=== PATIENT | male | born 1990 | race Caucasian/White ===

== ENCOUNTER 2017-02-21 18:59 | Emergency (ER) | payer BC, OTHER ==
[~2017-02-21] VITALS: Ht 182.9 cm; Wt 97.1 kg
[~2017-02-21 18:59] MED LIST: CLR10 PO; RISP1TAB68 PO; RISP2TAB22 PO; TRIA3AER NAE
[2017-02-21 19:03] VITALS: TEMP 36.4; Ht 182.9 cm; Wt 97.1 kg
[2017-02-21] MEDS ORDERED: TRIA1SPR4 NAE (19:39)
[2017-02-21] MEDS ORDERED: SERT50TA PO (19:41)
--- NOTE | 2017-02-21 20:32 | EMERGENCY ROOM VISIT NOTE ---
History Report prepared by Enrique: Martina Stokes Under the Supervision of: Dr. Mann Barrios M.D. First contact with patient: 19:48 Chief Complaint: RESPIRATORY PROBLEMS Stated Complaint: DIZZINESS, LIGHT HEADED, DIFFICULTY BREATHING Nursing Triage Summary: Patient states, "I'm having difficulty breathing. It doesn't hurt. I'm just yawning a lot and can't breath." Denies cough. Denies recent illness. History of Present Illness The patient is a 26 year old male who presents to the Emergency Room with complaints of worsening respiratory problems for the past couple of days. The patient states that he has been yawning constantly and feels like he is unable to take a deep breath. He is also experiencing intermittent dizziness and lightheadedness. He reports that these symptoms began after he started wearing a new 18K gold ring. He is concerned that he may be having some sort of reaction to the ring. He denies nausea, vomiting, diarrhea, chest pain, and cough. The patient denies any numbness or weakness in his extremities. He has a history of asthma but states that this does not feel like his typical asthma. He has never followed-up with a air filler. He does not take anything blood thinners. Source of History: patient Onset: a couple of days ago Position: chest (respiratory) Symptom Intensity: mild Timing: worsening Modifying Factors (Worsening): other (gold ring - possible allergic rxn) Associated Symptoms: No cough, No chest pain, No nausea, No vomiting, No diarrhea, No weakness, No numbness Note: Pt notes yawning and inability to take a deep breath. Review of Systems See HPI for pertinent positives & negatives. A total of 10 systems reviewed and were otherwise negative. Past Medical & Surgical Medical Problems: (1) Asthma Family History Cancer Diabetes mellitus Heart disease Seizures Social History Smoking Status: Never Smoker Smokeless Tobacco Use: No Alcohol Use: none Housing Status: lives with family Occupation Status: unemployed Current/Historical Medications Scheduled Loratadine (Claritin), 10 MG PO DAILY Risperidone (Risperdal), 1 MG PO QAM Risperidone (Risperdal), 2 MG PO HS Sertraline (Zoloft), 1.5 TAB PO DAILY Scheduled PRN Triamcinolone Acetonide (Nasal (Nasacort Allergy 24Hr), 1 SPRAY MURTAZA DAILY PRN for Nasal Congestion Allergies Coded Allergies: Penicillins (Unverified Allergy, Severe, HIVES, 10/09/09) Physical Exam Vital Signs Date Time Temp Pulse Resp B/P (MAP) Pulse Ox O2 Delivery O2 Flow Rate FiO2 02/21/17 22:21 63 19 120/72 95 Room Air 02/21/17 21:29 62 02/21/17 21:14 95 Room Air 02/21/17 21:14 95 Room Air 02/21/17 20:50 62 16 126/81 95 Room Air 02/21/17 19:03 36.4 68 18 136/80 96 Room Air 02/21/17 19:03 96 Room Air Physical Exam GENERAL: Patient is a healthy-appearing well-nourished young male. HEAD: Normocephalic atraumatic EYES: Ocular movements intact pupils equal and react to light OROPHARYNX mucous membranes are moist no exudates present no erythema or edema present NECK: Supple no nuchal rigidity CHEST: Good equal expansion LUNGS: Clear and equal to auscultation CARDIAC: Normal S1 and S2 ABDOMEN: Soft nontender no guarding BACK: No CVA tenderness EXTREMITIES: No pain upon palpation normal muscle strength in all groups no clubbing cyanosis or edema NEURO: Patient is following commands and answering questions appropriately. Alert and oriented x3 Cranial Nerves 2-12 grossly intact Medical Decision & Procedures ER Provider Diagnostic Interpretation: Radiology results as stated below per my review and radiologist interpretation: CHEST ONE VIEW PORTABLE HISTORY: Short of breath. COMPARISON: Chest 06/14/2009. FINDINGS: The lungs are clear. Cardiac silhouette is normal in size. No pleural effusions. No pneumothorax. IMPRESSION: No acute process. Electronically signed by: Bill Arevalo M.D. 02/21/2017 8:34 PM Dictated Date/Time: 02/21/2017 8:34 PM Laboratory Results 02/21/17 20:51 Red Blood Count 5.31, Mean Corpuscular Volume 83.2, Mean Corpuscular Hemoglobin 29.2, Mean Corpuscular Hemoglobin Concent 35.1, Mean Platelet Volume 12.0, Neutrophils (%) (Auto) 52.4, Lymphocytes (%) (Auto) 39.3, Monocytes (%) (Auto) 5.9, Eosinophils (%) (Auto) 1.9, Basophils (%) (Auto) 0.3, Neutrophils # (Auto) 4.86, Lymphocytes # (Auto) 3.65, Monocytes # (Auto) 0.55, Eosinophils # (Auto) 0.18, Basophils # (Auto) 0.03 02/21/17 20:51 Test 02/21/17 20:51 02/21/17 20:57 02/21/17 20:58 02/21/17 21:15 White Blood Count 9.29 K/uL (4.8-10.8) Red Blood Count 5.31 M/uL (4.7-6.1) Hemoglobin 15.5 g/dL (14.0-18.0) Hematocrit 44.2 % (42-52) Mean Corpuscular Volume 83.2 fL (80-100) Mean Corpuscular Hemoglobin 29.2 pg (25-34) Mean Corpuscular Hemoglobin Concent 35.1 g/dl (32-36) Platelet Count 186 K/uL (130-400) Mean Platelet Volume 12.0 fL (7.4-10.4) Neutrophils (%) (Auto) 52.4 % Lymphocytes (%) (Auto) 39.3 % Monocytes (%) (Auto) 5.9 % Eosinophils (%) (Auto) 1.9 % Basophils (%) (Auto) 0.3 % Neutrophils # (Auto) 4.86 K/uL (1.4-6.5) Lymphocytes # (Auto) 3.65 K/uL (1.2-3.4) Monocytes # (Auto) 0.55 K/uL (0.11-0.59) Eosinophils # (Auto) 0.18 K/uL (0-0.5) Basophils # (Auto) 0.03 K/uL (0-0.2) RDW Standard Deviation 38.7 fL (36.4-46.3) RDW Coefficient of Variation 13.0 % (11.5-14.5) Immature Granulocyte % (Auto) 0.2 % Immature Granulocyte # (Auto) 0.02 K/uL (0.00-0.02) Est Creatinine Clear Calc Drug Dose 136.6 ml/min Estimated GFR () 121.3 Estimated GFR (Non- 104.7 BUN/Creatinine Ratio 10.8 (10-20) Calcium Level 8.6 mg/dl (8.5-10.1) Total Bilirubin 0.3 mg/dl (0.2-1) Aspartate Amino Transf (AST/SGOT) 17 U/L (15-37) Alanine Aminotransferase (ALT/SGPT) 35 U/L (12-78) Alkaline Phosphatase 106 U/L (45-117) Total Protein 7.2 gm/dl (6.4-8.2) Albumin 4.0 gm/dl (3.4-5.0) Globulin 3.2 gm/dl (2.5-4.0) Albumin/Globulin Ratio 1.3 (0.9-2) Bedside Hemoglobin 15.0 g/dl (14.0-18.0) Bedside Hematocrit 44 % (42-52) Bedside Sodium 143 mEq/L (135-144) Bedside Potassium 4.2 mEq/L (3.3-5.0) Bedside Chloride 105 mEq/L (101-112) Bedside Total CO2 24 mEq/l (24-31) Anion Gap 20.0 mmol/L (16-25) Bedside Blood Urea Nitrogen 10 mg/dl (7-18) Bedside Creatinine 0.9 mg/dl (0.6-1.3) Bedside Glucose (other) 102 mg/dl (70-99) Bedside Ionized Calcium ([place]) 1.22 mmol/l (1.12-1.32) Bedside D-Dimer 89 ng/mlFEU (0-450) Urine Color YELLOW Urine Appearance CLEAR (CLEAR) Urine pH 6.5 (4.5-7.5) Urine Specific [place] 1.022 (1.000-1.030) Urine Protein NEG (NEG) Urine Glucose (UA) NEG (NEG) Urine Ketones NEG (NEG) Urine Occult Blood NEG (NEG) Urine Nitrite NEG (NEG) Urine Bilirubin NEG (NEG) Urine Urobilinogen NEG (NEG) Urine Leukocyte Esterase NEG (NEG) Labs reviewed by ED physician. ECG Indication: SOB/dyspnea Rate (beats per minute): 60 Rhythm: normal sinus Findings: no acute ischemic change, no ectopy ED Course 1947: Past medical records reviewed. The patient was evaluated in room B6. A complete history and physical examination was performed. 2143: I reassessed the patient at this time. He is feeling better and resting comfortably. I discussed the results and treatment plan with the patient. I answered all pertaining questions that he had. He expressed understanding and verbalized agreement. The patient will be discharged home. Medical Decision Differential diagnosis: Etiologies such as infections, reactive airway disease, pneumonia, pneumothorax , COPD, CHF, cardiac ischemia, pulmonary embolism, musculoskeletal, gastrointestinal, as well as others were entertained. Medication Reconciliation: I attest that I have personally reviewed the patient' s current medication list. Blood Pressure Screening: Patient was found to have an elevated blood pressure and was referred to their primary care doctor for recheck and further treatment. This is a 26-year-old male who presents emergency department complaining of shortness of breath. The patient is complaining of a large deal of yawning. He has a normal d-dimer normal CK-MB troponin as well as normal EKG. The patient also has a normal chest x-ray. I do not find any evidence of acute process. I do believe that the patient can be safely discharged home for follow -up this primary care physician. Patient was in agreement with the treatment plan. Impression Primary Impression: Dyspnea Scribe Attestation The scribe's documentation has been prepared under my direction and personally reviewed by me in its entirety. I confirm that the note above accurately reflects all work, treatment, procedures, and medical decision making performed by me. Departure Information Dispostion Home / Self-Care Referrals No Doctor, Assigned (PCP) Forms HOME CARE DOCUMENTATION FORM, IMPORTANT VISIT INFORMATION, WORK / SCHOOL INSTRUCTIONS Patient Instructions My [facility] [employer] Additional Instructions You were found to have an elevated blood pressure today (>120 sytolic or >90 diastolic). Per medicare guidelines, you need to follow up with this blood pressure screening with your Primary Care Physician (PCP). For a new PCP call [phone]. You have been examined and treated today on an emergency basis only. This is not a substitute for, or an effort to provide, complete comprehensive medical care. It is impossible to recognize and treat all injuries or illnesses in a single emergency department visit. It is therefore important that you follow up closely with your Pcp. Call as soon as possible for an appointment. Thank you for your time and consideration. I look forward to speaking with you again soon. Please don't hesitate to call us if you have any questions. Problem Qualifiers Primary Impression: Dyspnea Dyspnea type: unspecified Qualified Codes: R06.00 - Dyspnea, unspecified
--- NOTE | 2017-02-21 20:36 | DIAGNOSTIC IMAGING REPORT ---
CHEST ONE VIEW PORTABLE HISTORY: Short of breath. COMPARISON: Chest 06/14/2009. FINDINGS: The lungs are clear. Cardiac silhouette is normal in size. No pleural effusions. No pneumothorax. IMPRESSION: No acute process. Electronically signed by: Bill Arevalo M.D. 02/21/2017 8:34 PM Dictated Date/Time: 02/21/2017 8:34 PM
[2017-02-21 21:02] LABS: BASO % 0.3 %; BASO ABS # 0.03 K/uL (0-0.2); COMPLETE YES; EOS % 1.9 %; HEMATOCRIT 44.2 % (42-52); IG% 0.2 %; LYMPH % 39.3 %; LYMPH ABS # 3.65 K/uL (1.2-3.4); MEAN CELL VOLUME 83.2 fL (80-100); MEAN CORPUSCULAR HEMOGLOBIN 29.2 pg (25-34); MEAN CORPUSCULAR HGB CONC 35.1 g/dl (32-36); MONO % 5.9 %; NEUT % 52.4 %; PLATELET COUNT 186 K/uL (130-400); RED BLOOD COUNT 5.31 M/uL (4.7-6.1); WHITE BLOOD COUNT 9.29 K/uL (4.8-10.8)
[2017-02-21 21:13] LABS: ISTAT CREATININE 0.9 mg/dl (0.6-1.3); ISTAT IONIZED CALCIUM 1.22 mmol/l (1.12-1.32)
[2017-02-21 21:14] VITALS: O2SAT 95
[2017-02-21 21:18] LABS: BUN/CREATININE RATIO 10.8 (10-20); CALCIUM 8.6 mg/dl (8.5-10.1); CREATININE 0.99 mg/dl (0.60-1.40); POTASSIUM 4.3 mmol/L (3.5-5.1)
[2017-02-21 21:21] LABS: ALB/GLOB RATIO 1.3 (0.9-2)
[2017-02-21 21:47] LABS: URINE APPEARANCE CLEAR (CLEAR); URINE BILIRUBIN NEG (NEG); URINE COLOR YELLOW; URINE NITRITE NEG (NEG); URINE PH 6.5 (4.5-7.5); URINE SPECIFIC GRAVITY 1.022 (1.000-1.030); UROBILINOGEN NEG (NEG)
[2017-02-21 21:48] LABS: MANUAL MICROSCOPIC REQUIRED? NO; REVIEW REQ? NO
[2017-02-21 22:21] VITALS: BP 120/72; PULSE 63; O2SAT 95
== END 2017-02-21 22:25 | disposition home or self-care (01) ==
LOC: C.EDB 19:01
DX: R06.00 Dyspnea, unspecified (principal); J45.909 Unspecified asthma, uncomplicated; Z79.899 Other long term (current) drug therapy; Z88.0 Allergy status to penicillin; Z80.9 Family history of malignant neoplasm, unspecified; Z83.3 Family history of diabetes mellitus; Z82.49 Family history of ischemic heart disease and other diseases of the circulatory system; Z82.0 Family history of epilepsy and other diseases of the nervous system

== ENCOUNTER → 2018-04-23 | Outpatient (CLI) | payer OTHER ==
[~2018-04-23] MED LIST changes: +SERT50TA PO; +TRIA1SPR4 NAE; -TRIA3AER NAE
== END | disposition home or self-care (01) ==
LOC: C.LABBC 07:46
PROVIDERS: ATTEND Psychiatry & Neurology Child & Adolescent Psychiatry
DX: F84.0 Autistic disorder (principal)